=== PATIENT | female | born 1955 | race Caucasian/White ===

== ENCOUNTER 2021-04-06 14:50 | Outpatient (REF) | payer OTHER, SELFPAY ==
[2021-04-07 09:38] LABS: FIT1 NEGATIVE (NEGATIVE)
[2021-04-07 09:39] LABS: FIT2 POSITIVE (NEGATIVE)
[2021-04-07 09:40] LABS: FIT Int Ctl YES
== END 2021-04-06 14:51 | disposition home or self-care (01) ==
LOC: HO.LNP 14:50
PROVIDERS: PCP Nurse Practitioner Family; Visit Provider Nurse Practitioner Family
DX: Z12.11 Encounter for screening for malignant neoplasm of colon (principal)
CPT/HCPCS: 82274

== ENCOUNTER → 2021-04-27 09:05 | Outpatient (BNVA) | payer OTHER, SELFPAY | PROVIDERS: PCP Nurse Practitioner Family; Visit Provider Nurse Practitioner ==

== ENCOUNTER 2021-11-30 14:33 | Outpatient (REF) | payer OTHER, SELFPAY ==
[2021-11-30 15:26] LABS: Anion Gap 11 (12-20); Blood Urea Nitrogen 10 mg/dL (9-16); Calcium 9.5 mg/dL (8.4-10.2); Carbon Dioxide 31 mmol/L (22-29); Chloride 100 mmol/L (96-108); Cholesterol 177 mg/dL; Estimated Glomerular Filt Rate > 60; Glucose Random 110 mg/dL (60-115); HDL Cholesterol 60 mg/dL; LDL Cholesterol Calculated 82 mg/dl; Potassium 3.6 mmol/L (3.3-5.1); Sodium 138 mmol/L (135-145); Triglycerides 179 mg/dL
== END 2021-11-30 14:34 | disposition home or self-care (01) ==
LOC: HO.LAB 14:33
PROVIDERS: PCP Nurse Practitioner Family; Visit Provider Nurse Practitioner Family
DX: I10 Essential (primary) hypertension (principal)
CPT/HCPCS: 36415; 80048; 80061

== ENCOUNTER 2021-12-29 10:07 | Outpatient (REF) | payer OTHER, SELFPAY ==
[2021-12-29 10:58] LABS: Anion Gap 8 (12-20); Blood Urea Nitrogen 10 mg/dL (9-16); Calcium 9.7 mg/dL (8.4-10.2); Carbon Dioxide 33 mmol/L (22-29); Chloride 102 mmol/L (96-108); Estimated Glomerular Filt Rate > 60; Glucose Random 72 mg/dL (60-115); Potassium 3.5 mmol/L (3.3-5.1); Sodium 139 mmol/L (135-145)
[2021-12-29 11:21] LABS: Thyroid Stimulating Hormone 0.94 uIU/mL (0.32-4.0); Vitamin D 25-OH Total 30.9 ng/mL (>30)
== END 2021-12-29 10:08 | disposition home or self-care (01) ==
LOC: HO.LAB 10:07
PROVIDERS: PCP Nurse Practitioner Family; Visit Provider Nurse Practitioner Family
DX: Z00.00 Encounter for general adult medical examination without abnormal findings (principal)
CPT/HCPCS: 36415; 80048; 82306; 84443

== ENCOUNTER 2022-02-15 10:00 | Outpatient (REF) | payer OTHER, SELFPAY ==
[2022-02-15 10:17] LABS: MANUAL DIFF FLAG NO
[2022-02-15 11:07] LABS: Basophils Absolute Auto 0.1 X10*3/uL (0.0-0.2); Basophils Percent Auto 0.7 % (0-2); Eosinophils Absolute Auto 0.1 X10*3/uL (0.0-0.4); Eosinophils Percent Auto 1.5 % (0-4); Hematocrit 37.1 % (37.0-47.0); Hemoglobin 12.3 g/dl (12.0-16.0); Imm Gran Abs Auto 0.02 X10*3/uL (0.00-0.03); Imm Gran Pct Auto 0.3 % (0.0-0.4); Lymphocytes Absolute Auto 1.5 X10*3/uL (1.2-4.9); Lymphocytes Percent Auto 21.2 % (20-40); Mean Corpuscular HGB Conc 33.2 g/dl (31.0-35.0); Mean Corpuscular Hemoglobin 30.1 pg (27.0-33.0); Mean Corpuscular Volume 90.9 fL (80.0-98.0); Mean Platelet Volume 11.4 fL (9.4-12.3); Monocytes Absolute Auto 0.6 X10*3/uL (0.1-1.2); Monocytes Percent Auto 9.4 % (2-11); Neutrophils Absolute Auto 4.6 x10*3/uL (2.0-8.3); Neutrophils Percent Auto 66.9 % (45-73); Platelet Count 246 X10*3/uL (160-400); Red Blood Count 4.08 X10*6/uL (4.20-5.50); Red Cell Distribution Width 13.7 % (11.0-16.0); White Blood Count 6.8 X10*3/uL (4.8-10.8)
== END 2022-02-15 10:01 | disposition home or self-care (01) ==
LOC: HO.LAB 10:00
PROVIDERS: PCP Nurse Practitioner Family; Visit Provider Nurse Practitioner Family
DX: Z00.00 Encounter for general adult medical examination without abnormal findings (principal)
CPT/HCPCS: 36415; 85025

== ENCOUNTER 2022-03-08 15:19 | Outpatient (REF) | payer OTHER, SELFPAY ==
[2022-03-08 16:27] LABS: MANUAL DIFF FLAG NO
[2022-03-08 16:30] LABS: Basophils Percent Auto 0.4 % (0-2); Eosinophils Absolute Auto 0.1 X10*3/uL (0.0-0.4); Eosinophils Percent Auto 1.3 % (0-4); Hematocrit 34.6 % (37.0-47.0); Hemoglobin 11.7 g/dl (12.0-16.0); Imm Gran Abs Auto 0.01 X10*3/uL (0.00-0.03); Imm Gran Pct Auto 0.1 % (0.0-0.4); Lymphocytes Absolute Auto 1.2 X10*3/uL (1.2-4.9); Lymphocytes Percent Auto 18.5 % (20-40); Mean Corpuscular HGB Conc 33.8 g/dl (31.0-35.0); Mean Corpuscular Hemoglobin 29.7 pg (27.0-33.0); Mean Corpuscular Volume 87.8 fL (80.0-98.0); Mean Platelet Volume 10.6 fL (9.4-12.3); Monocytes Absolute Auto 0.7 X10*3/uL (0.1-1.2); Monocytes Percent Auto 10.3 % (2-11); Neutrophils Absolute Auto 4.6 x10*3/uL (2.0-8.3); Neutrophils Percent Auto 69.4 % (45-73); Platelet Count 238 X10*3/uL (160-400); Red Blood Count 3.94 X10*6/uL (4.20-5.50); Red Cell Distribution Width 13.2 % (11.0-16.0); White Blood Count 6.7 X10*3/uL (4.8-10.8)
[2022-03-08 17:03] LABS: Erythrocyte Sedimentation Rate 18 MM/HR (0-20)
[2022-03-08 19:13] LABS: Alanine Aminotransferase 8 U/L (0-31); Albumin Level 4.1 g/dL (3.5-5.0); Alkaline Phosphatase 89 U/L (39-117); Anion Gap 13 (12-20); Aspartate Amino Transferase 15 U/L (5-31); Bilirubin Total 0.3 mg/dL (0.0-1.0); Blood Urea Nitrogen 12 mg/dL (9-16); C Reactive Protein 0.02 mg/dL (< or = 0.50); Calcium 9.4 mg/dL (8.4-10.2); Carbon Dioxide 30 mmol/L (22-29); Chloride 99 mmol/L (96-108); Estimated Glomerular Filt Rate > 60; Glucose Random 137 mg/dL (60-115); Potassium 3.4 mmol/L (3.3-5.1); Sodium 139 mmol/L (135-145); Total Protein 7.1 g/dL (6.5-8.0)
[2022-03-08 19:33] LABS: Thyroid Stimulating Hormone 1.06 uIU/mL (0.32-4.0)
== END 2022-03-08 15:20 | disposition home or self-care (01) ==
LOC: HO.LAB 15:19
PROVIDERS: Nurse Practitioner; PCP Nurse Practitioner Family; Visit Provider Nurse Practitioner Family
DX: R63.4 Abnormal weight loss (principal); Z12.11 Encounter for screening for malignant neoplasm of colon
CPT/HCPCS: 36415; 80053; 84443; 85025; 85652; 86140

== ENCOUNTER 2023-03-31 20:23 | Emergency (ER) | payer OTHER, SELFPAY ==
[2023-03-31 21:12] VITALS: BP 142/82; PULSE 85; RESP 18; TEMP 36.4; O2SAT 96; BMI 16.6
[2023-04-01 03:35] VITALS: BP 148/77; PULSE 83; RESP 16; TEMP 37.2; O2SAT 98
--- NOTE | 2023-04-01 03:47 | ED_ITS ---
HPI - Fall General Chief Complaint: Extremity Injury, Lower Stated Complaint: xrays from [facility]/ fracture hip/elbow Time Seen by Provider: 04/01/23 03:46 Source: patient Mode of arrival: ambulatory Limitations: no limitations History of Present Illness HPI Narrative: Patient is 67-year-old with history of osteoporosis was walking and tripped on a manhole earlier yesterday was seen and walk-in clinic of [facility] with excessive which showed nondisplaced intra-articular fracture of left radius and left greater trochanteric cortex fracture. Patient comes here as been having the pain and no medication was given no other injuries no loss of consciousness no head injury Related Data Home Medications Medication Instructions Recorded Confirmed hydrochlorothiazide 25 mg tablet 25 mg PO DAILY 04/27/21 03/29/22 Previous Rx's Medication Instructions Recorded bisacodyl 5 mg tablet,delayed 10 mg PO ONCE Bowel Preparation 1 12/25/21 release (Dulcolax (bisacodyl)) day #2 tabs polyethylene glycol 3350 17 238 g PO ONCE 1 day #238 grams 12/25/21 gram/dose oral powder (Miralax) doxycycline hyclate 100 mg capsule 200 mg PO DAILY 1 day #2 caps 01/08/23 cane #1 ea 04/01/23 tramadol 50 mg tablet 50 mg PO Q6H PRN pain #20 tabs 04/01/23 Allergies Allergy/AdvReac Type Severity Reaction Status Date / Time melinda Allergy Intermediate Rash Verified 03/31/23 21:11 electromagnetic rodríguez Allergy Unknown unknown Uncoded 01/08/23 12:04 Review of Systems Review of Systems: Yes all other systems are reviewed and are negative [facility] Past Medical History Medical History Closed fracture of greater trochanter of left femur HTN (hypertension) Surgical History H/O colonoscopy History of open reduction and internal fixation (ORIF) procedure Social History Social History Patient Tobacco Use Status: Never used Tobacco Smoked in Last 30 Days: No Advance Directives: No Advance Directives Information Provided: Yes Physical Exam Vital Signs: Vital Signs: Last Vital Signs Temp 99.0 F 04/01/23 03:35 Pulse 83 04/01/23 03:35 Resp 16 04/01/23 03:35 BP 148/77 H 04/01/23 03:35 Pulse Ox 98 04/01/23 03:35 O2 Del Method Room Air 04/01/23 03:35 BMI result Body Mass Index 16.6 Appearance: Alert. Oriented X3. No acute distress. Eyes: PERRLA, ENT: Pharynx normal. Oral Mucosa moist Neck: Normal inspection. Neck supple. CVS: Normal heart rate and rhythm. Pulses normal. Respiratory: No respiratory distress. Equal air entry bilateral, no wheezing/rales/rhonchi Abdomen: Soft and nontender. Bowel sounds are present, no mass palpable, no CVA tenderness Skin: Skin warm and dry. Normal skin color. Normal skin turgor. Extremities: No lower extremity edema. No calf tenderness tenderness left greater trochanteric area with slight soft tissue swelling, left elbow swelling painful to touch at left radius head Neuro: Oriented X 3. No motor deficit. No sensory deficit.No cerebellar signs , cranial nerves II-XII intact Medications Administered Discontinued Medications Generic Name Dose Route Start Last Admin Trade Name Freq PRN Reason Stop Dose Admin Tramadol HCl 50 mg 04/01/23 04:53 04/01/23 05:16 Tramadol Hcl 50 Mg Tablet PO 04/01/23 04:54 50 mg ONCE ONE Administration Procedures Orthopedic Splinting/Casting Injury #1: Side: left Upper Extremity Injury Location: elbow Upper Extremity Immobilizer: figure of eight splint Medical Decision Making Medical Decision Making MDM Narrative: Patient brought the x-rays report from [facility] which showed left greater trochanteric cortex fracture and intra-articular fracture of the L radial head sugar-tong splint was applied patient advised to follow-up with orthopedic Discharge Plan Discharge Clinical Impression: Closed left radial fracture, Closed fracture of greater trochanter of left femur Patient Disposition: Home, Self-Care Instructions: Elbow Fracture (ED), Hip Fracture (ED) Additional Instructions: Wear the splint and the sling as provided till seen by orthopedic Weight as tolerated Pain medication as prescribed Follow-up with orthopedic Prescriptions: New tramadol 50 mg tablet 50 mg PO Q6H PRN (Reason: pain) Qty: 20 0RF (DME) cane Device See Rx Instructions .Route Qty: 1 0RF Rx Instructions: As directed No Action bisacodyl [Dulcolax (bisacodyl)] 5 mg tablet,delayed release (DR/EC) 10 mg PO ONCE 1 Days Qty: 2 0RF Rx Instructions: Take 2 tablets at 12:00pm the day before your procedure, bowel prep polyethylene glycol 3350 [Miralax] 17 gram/dose powder 238 g PO ONCE 1 Days Qty: 238 0RF Rx Instructions: Take as directed by mouth, bowel prep doxycycline hyclate 100 mg capsule 200 mg PO DAILY 1 Days Qty: 2 0RF hydrochlorothiazide 25 mg tablet 25 mg PO DAILY Referrals: Osvaldo Mora MD [Physician] - 1 week Interventions: ED Discharge Assessment Last Done: 04/01/23 05:42 Discharge Date/Time: 04/01/23 05:20
[2023-04-01] MEDS: traMADoL HCL 50 MG TABLET PO (05:16)
== END 2023-04-01 05:20 | disposition home or self-care (01) ==
PROVIDERS: Emergency Provider Internal Medicine; PCP Nurse Practitioner Family
DX: S72.115A Nondisplaced fracture of greater trochanter of left femur, initial encounter for closed fracture (principal); S52.125A Nondisplaced fracture of head of left radius, initial encounter for closed fracture; W01.0XXA Fall on same level from slipping, tripping and stumbling without subsequent striking against object, initial encounter; Y93.01 Activity, walking, marching and hiking; Y92.9 Unspecified place or not applicable; Y99.9 Unspecified external cause status; I10 Essential (primary) hypertension
CPT/HCPCS: 29105; 99283; 99284

== ENCOUNTER 2023-04-04 06:03 | Outpatient (REF) | payer OTHER, SELFPAY ==
--- NOTE | ~2023-04-04 | XR_ITS ---
EXAMINATION: XR ELBOW, LEFT CLINICAL INFORMATION: Pain. COMPARISON: None available. TECHNIQUE: AP, lateral, and oblique views of the left elbow. FINDINGS: There is bony demineralization. There is a joint effusion, with anterior sail sign and posterior elevated fat pad. A minimal cortical disruption is suspected at the lateral margin of the radial head/neck. No dislocation is seen. There is mild posterior soft tissue swelling. No soft tissue gas or foreign body is seen. XR/XR elbow LT min 3V IMPRESSION: A minimal nondisplaced fracture is questioned of the lateral aspect of the left radial head/neck. There is a joint effusion. Consider short-term follow-up left elbow radiographs in one week for further assessment.
--- NOTE | ~2023-04-04 | XR_ITS ---
EXAMINATION: XR PELVIS CLINICAL INFORMATION: Pain. COMPARISON: None available. TECHNIQUE: AP view of the pelvis. FINDINGS: There is bony demineralization. No fracture. Hip joint spaces are maintained. Alignment is anatomic. Sacroiliac joints and pubic symphysis are normal. There is enthesophyte arising from the greater trochanter of the proximal left femur. No abnormal soft tissue calcifications. There are pelvic phleboliths. XR/XR pelvis 1-2V IMPRESSION: Unremarkable pelvis.
== END 2023-04-04 06:04 | disposition home or self-care (01) ==
LOC: HO.HOSX 06:03
PROVIDERS: Visit Provider Physician Assistant
DX: S72.122A Displaced fracture of lesser trochanter of left femur, initial encounter for closed fracture (principal); S52.122A Displaced fracture of head of left radius, initial encounter for closed fracture
CPT/HCPCS: 72170; 73080

== ENCOUNTER 2023-04-04 10:01 | Outpatient (AMB) | payer OTHER, MEDICAID, SELFPAY ==
--- NOTE | 2023-04-04 10:18 | MHC.OFFVIS ---
Intake Intake Visit Reasons: FC - left hip fx, DOI 03/31/23 Intake Note: Crys is a 67 year old female who presents today for a fracture care appointment for her left hip fx, DOI 03/31/23. Patient reports whe she was walking she tripped on a manhole cover, landing on her left side. She states that her hip is sore and she states that her left elbow feels normal no pain at the moment. Allergies melinda Allergy (Intermediate, Verified 04/04/23 10:23) Rash electromagnetic ordríguez Allergy (Unknown, Uncoded 01/08/23 12:04) unknown HPI FC - left hip fx, DOI 03/31/23 HPI Details 67-year-old female who presents in the office today, as a new patient, for an evaluation of left elbow and left hip pain. The patient presented to the ED on 04/01/2023 status post a trip and fall in a manhole. She was placed in a figure of eight splint and sling and referred to orthopedics. She reports soreness in her left hip. She claims to have no pain in her left elbow while in the office today. The patient reports minimal discomfort about the left elbow. Mild discomfort with the left hip. Most of her pain is lower back related. [facility] Medical History Closed fracture of greater trochanter of left femur HTN (hypertension) Surgical History H/O colonoscopy History of open reduction and internal fixation (ORIF) procedure Social History Patient Tobacco Use Status: Never used Tobacco Review of Systems Const All systems reviewed & are unremarkable except as noted in HPI and below Physical Exam Const General: cooperative and no acute distress Orientation/consciousness: patient oriented x3 Resp Effort & Inspection: normal respiratory effort and able to speak in complete sentences Cardio Rate: regular rate Peripheral pulses: Peripheral pulses 2+ throughout GI Palpation (GI): Soft to palpation Skin General skin exam: no rashes or lesions noted Lesions: no lesions Rashes: no rashes Neuro General: patient oriented x3 Extrem Other: Left elbow: Resolving ecchymosis and hematoma posterior aspect just proximal to the olecranon. Able to perform full hip flexion, extension, pronate, and supinate to end range. Minimal tenderness to palpation over the radial head. Left hand: Normal to inspection. No ecchymosis, erythema, or edema. Able to perform full finger flexion, extension, abduction, adduction, finger cross, okay sign, and thumbs up without deficit. Able to make a closed fist. Sensation intact. Capillary refill is brisk. Radial pulse intact. Full wrist flexion and extension Left hip: Patient is ambulating around the office with minimal discomfort. No tenderness to palpation to the greater trochanteric bursa. NVI. Assessment & Plan Assessment & Plan (1) Fracture of greater trochanter of left femur: Code(s): S72.112A - Displaced fracture of greater trochanter of left femur, initial encounter for closed fracture (2) Left radial head fracture: Code(s): S52.122A - Displaced fracture of head of left radius, initial encounter for closed fracture Plan Ms. Vera is a 67-year-old female who presents in the office today, as a new patient, for an evaluation of left elbow and left hip pain. The patient presented to the ED on 04/01/2023 status post a trip and fall in a manhole. She was placed in a figure of eight splint and sling and referred to orthopedics. She reports soreness in her left hip. She claims to have no pain in her left elbow while in the office today. The patient reports minimal discomfort about the left elbow. Mild discomfort with the left hip. Most of her pain is lower back related. I offered a referral to Pain Management for further evaluation and treatment. However, the patient would like to go to a walk-in clinic instead. We discussed she is able to move the elbow and to perform activities as tolereted. No heavy lifting greater then a coffee cup. Left lower extremity she is using a walking stick to assist with ambulation. I did assess the possibility of occupational therapy/physcial therapy. However, she is able to ambulate fairly well and has full ROM of the left elbow. Therefore, it was deferred at this time. She was given an out of work note for the next 4 weeks. Follow up will be PRN, or sooner if needed. X-rays of the left elbow which were obtained while in the office today and were reviewed by me, Gail Weinberg PA-C, revealed radial head fracture. X-rays of the left hip which were obtained while in the office today and were reviewed by me, Gail Weinberg PA-C, revealed nondisplaced great troch fracture. Orders: Orders XR elbow LT min 3V Today M25.529 - Pain in unspecified elbow XR pelvis 1-2V Today M25.559 - Pain in unspecified hip Patient Instructions: Scribed for Gail Weinberg PA-C by Katie Jean-Baptiste medical planner, on 04/04/2023 at 10:04 am, EST. Your attestation Coding Level of Care Code New Pt Level 4 (69177) Diagnoses Fracture of greater trochanter of left femur S72.112A Left radial head fracture S52.122A
== END 2023-04-04 10:48 | disposition home or self-care (01) ==
PROVIDERS: PCP Nurse Practitioner Family; Visit Provider Physician Assistant
DX: S72.115A Nondisplaced fracture of greater trochanter of left femur, initial encounter for closed fracture (principal); S52.122A Displaced fracture of head of left radius, initial encounter for closed fracture
CPT/HCPCS: 99204

== ENCOUNTER 2023-05-09 13:00 | Outpatient (RCR) | payer OTHER, SELFPAY ==
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
--- NOTE | 2023-06-11 09:33 | MHC.PT.DC ---
[facility] [place] Office [place] Office [place] Office [address] [phone] F: [phone] F: [phone] F: [phone] F: [phone] Physical Therapy Discharge Report Diagnosis: FRACTURE OF GREATER TROCHANTER OF L FEMUR Date of Surgery: DOI 03/31 Date of Evaluation: 04/11/23 Date of Discharge: 06/11/23 Treatments to Date: 6 Cancellations to Date: No Shows to Date: Discharge Status: Achieved Goals Improved Function Independent with HEP Patient Elected to Stop Discharge Summary: HAS MET PT GOALS, Pt CARRYING WALKING STICK WITH GOOD GT PATTERN (REPORTS USES IT WHEN OUT FOR OTHERS TO BE CAREFUL OF HER) Electronically signed by: FABBY MOTA PT Please sign and return to therapist. Thank you for your referral.
== END 2023-06-11 09:34 | disposition home or self-care (01) ==
LOC: HO.PT 13:00
PROVIDERS: PCP Internal Medicine; Visit Provider Physician Assistant
DX: S72.112D Displaced fracture of greater trochanter of left femur, subsequent encounter for closed fracture with routine healing (principal)
CPT/HCPCS: 97110; 97162; 97535

== ENCOUNTER 2023-05-09 14:00 | Outpatient (RCR) | payer OTHER, SELFPAY ==
--- NOTE | 2023-04-15 14:03 | MHC.OT.EP ---
[address] [phone] Occupational Therapy Plan of Care Patient Name: Crys Vera Date of Evaluation: 04/15/23 Diagnosis: Displaced fracture of head of left radius Pain Location: 0-7 left thumb 7 Left elbow and biceps 4 Pain Score: 4 Pain Scale Used: Numeric (0 - 10) Aggravating Factors: Use of left arm and hand. Alleviating Factors: Ibuprofen , CBD cream, Tramdol 1/2 tablet on bad days, Has 1/2 tab left Assessment: Pt is a 67 yo female 2 wks s/p left displaced radial head fracture and left hip fracture due to a fall on her left side when she tripped on a man hole Pt is cleared for elbow ROM, and lifting nothing heavier than a coffee cup. In terms of her left upper extremity her primary complaint of pain is at her left thumb basal joint. Her pain is mild at the elbow with limited elbow flexion and pronation. Hand pain at the basal joint is moderate with severeyl limited respiratory therapist assistant and pinch strength. She has been able to modify her daily activities and reports independent with essential daily activities but unable to garden, use the keyboard or exercise due to protection left elbow and hand. Pt will benefit from OT to improve pain, ROM and progress strengthening of uninvolved joints until medically cleared for the elbow ~ 6 wks Frequency and Duration: The patient will be seen 2 x wk x 6 wks Short Term Goals: Demo indep with left UE AROM ex Demo gentle strengthening of left shoulder and hand Demo indep with thermal modalities for pain management Demo indep with taping for left thumb support as needed Left elbow ext to neutral Left elbow flex to 140 deg Left forearm supination to 75 deg Begin gentle wrist and elbow strengthening [facility] Goals: Left elbow AROM WNL Indep with LUE strengthening Left respiratory therapist assistant to > 25 lb Indep in self management on left thumb pain Use of left hand to wash face , light homemaking and keyboarding with ease Quick DASH to < 10 pts Treatment Plan: Therapeutic Exercise Therapeutic Activity Home Exercise Program Patient Education ADL Training Ultrasound Paraffin MHP Soft Tissue Mobilization Kinesiotaping Electronically Signed By: Merlyn Mcclure OT CHT CLT Please Sign and return to therapist. Thank you once again for your referral.
--- NOTE | 2023-05-09 14:56 | MHC.OT.DC ---
[address] [phone] F: [phone] Occupational Therapy Discharge Note Patient Name: Crys Vera Provider: Gail Weinberg Diagnosis: Displaced fracture of head of left radius Date of Surgery: Date of Evaluation: 04/15/23 Date of Discharge: 05/09/23 Treatments to Date: 4 Cancellations to Date: No Shows to Date: Discharge Status: Achieved Goals Improved Function Independent with HEP Discharge Summary: Goals met. for elbow pain, ROM , internal communications specialist strength and light functional use of left UE . Pt with benefit from continuing her HEP for progressing UE strength. Elbow flexion 140 deg. elbow ext to neutral Left internal communications specialist to 40 lb Electronically Signed By: Merlyn Mcclure OT CHT CLT Reviewed/agree with student documentation: Therapist: Please Sign and return to therapist, thank you for your referral.
== END 2023-05-09 14:57 | disposition home or self-care (01) ==
LOC: HO.OT 14:00
PROVIDERS: PCP Internal Medicine; Visit Provider Physician Assistant
DX: S52.122D Displaced fracture of head of left radius, subsequent encounter for closed fracture with routine healing (principal)
CPT/HCPCS: 97110; 97166

== ENCOUNTER 2024-07-16 17:18 | Outpatient (REF) | payer MEDICARE, SELFPAY ==
[2024-07-19 17:37] LABS: Calcium, 24 Hr Urine 134 mg/24 h; Calcium/Creatinine Ratio 173 mg/g creat (30-275); Creatinine 24Hr Urine 0.77 g/24 h (0.50-2.15)
== END 2024-07-16 17:19 | disposition home or self-care (01) ==
LOC: HO.LNP 17:18
PROVIDERS: Visit Provider Family Medicine
DX: M81.0 Age-related osteoporosis without current pathological fracture (principal); R82.994 Hypercalciuria
CPT/HCPCS: 82340

== ENCOUNTER 2024-08-10 14:01 | Outpatient (RCR) | payer MEDICARE, SELFPAY | END 2024-08-31 12:01 | disposition home or self-care (01) | LOC: HO.PT 14:01 | PROVIDERS: PCP Registered Nurse; Visit Provider Registered Nurse | DX: M54.9 Dorsalgia, unspecified (principal) | CPT/HCPCS: 97110; 97161; 97535 ==